=== PATIENT | female | born 1975 | race African-American/Black ===

== ENCOUNTER 2016-08-26 06:54 | Emergency (ER) | payer OTHER ==
[~2016-08-26] VITALS: Ht 165.1 cm; Wt 105.0 kg
[~2016-08-26 06:54] MED LIST: PERM5CRE TOP
[2016-08-26 06:58] VITALS: BP 123/76; PULSE 90; RESP 20; TEMP 98.9; O2SAT 98
[2016-08-26] MEDS ORDERED: SODIUM CHLOR 0.9% 1000 ML INJ 1,000 ML IV SCH (07:23)
[2016-08-26] MEDS ORDERED: SODIUM CHLOR 0.9% 1000 ML INJ 1,000 ML IV ONE (07:30)
[2016-08-26] MEDS ORDERED: SODIUM CHLORIDE 0.9% FLUSH 10 ML FLUSH IV FLUSH PRN (07:30)
[2016-08-26] MEDS ORDERED: ONDANSETRON HCL 4 MG/2 ML VIAL IVP ONE (07:30)
[2016-08-26] MEDS ORDERED: PANTOPRAZOLE SODIUM 40 MG VIAL IVP ONE (07:30)
--- NOTE | 2016-08-26 07:44 | PD ---
HPI Chief Complaint: GI Complaint Time Seen by Provider: 07:22 Travel History International Travel<30 days: No Contact w/Intl Traveler<30days: No Traveled to known affect area: No History of Present Illness HPI Patient is a 40 year old female with history of gastritis presents to ER with c/ o of not feeling well. Patient reports that she has been having increased nausea and vomiting and diarrhea for the past 10 hours. Reports that her partner was sick with food poisoning prior to the onset of her symptoms. Patient reports that they did eat similar foods. Patient denies any fever/ chills. Reports that she has vomited so much, she sees specks of blood in her mucous. Reports that she is now noticing some dark stools. Patient reports, "I keep vomiting and having diarrhea." Reports pains to her epigastrium. Denies any recent travels/trips. Denies any recent antibiotics. Reports that she has had bouts of gastritis in the past, she is supposed to follow with manager finance but has not made an appointment yet. Patient with no other complaints at this time. [facility] Past Medical History Medical History: Denies Significant Hx Tetanus Vaccination: > 5 Years Influenza Vaccination: No ?: Not LMP: 08/13/16 Past Surgical History Surgical History: No Previous Surgery Social History Alcohol Use: Yes (OCCASIONAL) Tobacco Use: No Substance Use: No Allergies-Medications (Allergen,Severity, Reaction): Coded Allergies: Lortab (Verified Allergy, Severe, VOMITING, 08/26/16) Tramadol (Verified Allergy, Severe, 08/26/16) Reported Meds & Prescriptions Reported Meds & Active Scripts Active Omeprazole 40 Mg Cap 40 Mg PO DAILY Review of Systems General / Constitutional: No: Fever Eyes: No: Visual changes HENT: No: Headaches Cardiovascular: No: Chest Pain or Discomfort Respiratory: No: Shortness of Breath Gastrointestinal: Positive: Nausea, Vomiting, Diarrhea, Abdominal Pain, Hematemesis Genitourinary: No: Dysuria Musculoskeletal: No: Pain Skin: No Rash Neurologic: No: Weakness Psychiatric: No: Depression Endocrine: No: Polydipsia Hematologic/Lymphatic: No: Easy Bruising Physical Exam Narrative GENERAL: Moderate distress SKIN: Focused skin assessment warm/dry. HEAD: Atraumatic. Normocephalic. EYES: Pupils equal and round. No scleral icterus. No injection or drainage. ENT: No nasal bleeding or discharge. Mucous membranes pink and moist. NECK: Trachea midline. No JVD. CARDIOVASCULAR: Regular rate and rhythm. No murmur appreciated. RESPIRATORY: No accessory muscle use. Clear to auscultation. Breath sounds equal bilaterally. GASTROINTESTINAL: Abdomen soft, tenderness to the epigastrium, nondistended. Patient with slightly heme positive stool, stool is light brown in color, no rebound or guarding on exam MUSCULOSKELETAL: No obvious deformities. No clubbing. No cyanosis. No edema. NEUROLOGICAL: Awake and alert. No obvious cranial nerve deficits. Motor grossly within normal limits. Normal speech. PSYCHIATRIC: Appropriate mood and affect; insight and judgment normal. Data Data Last Documented VS Vital Signs Date Time Temp Pulse Resp B/P Pulse Ox O2 Delivery O2 Flow Rate FiO2 08/26/16 10:40 82 18 126/75 100 Room Air 08/26/16 06:58 98.9 Orders Complete Blood Count With Diff (08/26/16 07:23) Comprehensive Metabolic Panel (08/26/16 07:23) Prothrombin Time / Inr (Pt) (08/26/16 07:23) Act Partial Throm Time (Ptt) (08/26/16 07:23) Urinalysis - C+S If Indicated (08/26/16 07:23) Ct Abd/Pel W/O Iv Contrast (08/26/16 07:23) Iv Access Insert/Monitor (08/26/16 07:23) Ecg Monitoring (08/26/16 07:23) Ondansetron Inj (Zofran Inj) (08/26/16 07:30) Pantoprazole Inj (Protonix Inj) (08/26/16 07:30) Sodium Chlor 0.9% 1000 Ml Inj (Ns 1000 M (08/26/16 07:23) Sodium Chloride 0.9% Flush (Ns Flush) (08/26/16 07:30) Chest, Single Ap (08/26/16 07:23) Ed Urine Pregnancytest Poc (08/26/16 07:23) Sodium Chlor 0.9% 1000 Ml Inj (Ns 1000 M (08/26/16 07:30) Labs Laboratory Tests Test 08/26/16 08/26/16 07:30 09:15 White Blood Count 5.7 TH/MM3 Red Blood Count 4.47 MIL/MM3 Hemoglobin 12.6 GM/DL Hematocrit 36.9 % Mean Corpuscular Volume 82.5 FL Mean Corpuscular Hemoglobin 28.1 PG Mean Corpuscular Hemoglobin 34.1 % Concent Red Cell Distribution Width 14.0 % Platelet Count 307 TH/MM3 Mean Platelet Volume 8.3 FL Neutrophils (%) (Auto) 87.1 % Lymphocytes (%) (Auto) 6.3 % Monocytes (%) (Auto) 5.8 % Eosinophils (%) (Auto) 0.7 % Basophils (%) (Auto) 0.1 % Neutrophils # (Auto) 5.0 TH/MM3 Lymphocytes # (Auto) 0.4 TH/MM3 Monocytes # (Auto) 0.3 TH/MM3 Eosinophils # (Auto) 0.0 TH/MM3 Basophils # (Auto) 0.0 TH/MM3 CBC Comment DIFF FINAL Differential Comment Prothrombin Time 10.7 SEC Prothromb Time International 1.0 RATIO Ratio Activated Partial 26.7 SEC Thromboplast Time Sodium Level 139 MEQ/L Potassium Level 4.1 MEQ/L Chloride Level 105 MEQ/L Carbon Dioxide Level 26.6 MEQ/L Anion Gap 7 MEQ/L Blood Urea Nitrogen 11 MG/DL Creatinine 0.91 MG/DL Estimat Glomerular Filtration 83 ML/MIN Rate Random Glucose 133 MG/DL Calcium Level 8.7 MG/DL Total Bilirubin 0.6 MG/DL Aspartate Amino Transf 15 U/L (AST/SGOT) Alanine Aminotransferase 21 U/L (ALT/SGPT) Alkaline Phosphatase 77 U/L Total Protein 8.0 GM/DL Albumin 3.6 GM/DL Urine Color YELLOW Urine Turbidity CLEAR Urine pH 6.0 Urine Specific [place] 1.016 Urine Protein NEG mg/dL Urine Glucose (UA) NEG mg/dL Urine Ketones NEG mg/dL Urine Occult Blood NEG Urine Nitrite NEG Urine Bilirubin NEG Urine Urobilinogen LESS THAN 2.0 MG/DL Urine Leukocyte Esterase NEG Urine RBC 1 /hpf Urine WBC LESS THAN 1 /hpf Urine Squamous Epithelial <1 /hpf Cells Microscopic Urinalysis Comment CULT NOT INDICATED MDM Medical Decision Making Medical Screen Exam Complete: Yes Emergency Medical Condition: Yes Interpretation(s) Vital Signs Date Time Temp Pulse Resp B/P Pulse Ox O2 Delivery O2 Flow Rate FiO2 08/26/16 07:12 18 08/26/16 06:58 98.9 90 20 123/76 98 Room Air Differential Diagnosis Gastritis, gastroenteritis, gastric ulcer, cholecystitis, electrolyte abnormality Narrative Course Patient is a 40-year-old female who presents to emergency room with complaints of abdominal pain with nausea, vomiting and diarrhea for the past 10 hours. She has been noticing specks of bright red blood in her sputum as well as dark stools. On evaluation, patient is likely heme positive from her rectum with light brown stool. Patient does have history of gastritis, plan to give IV Protonix. Patient was placed on a cardiac tech, labs including liver function tests ordered. CT of the abdomen and pelvis ordered. We'll hydrate with IV fluids and give antiemetics and monitor patient. CBC & BMP Diagram 08/26/16 07:30 Last Impressions Chest X-Ray 08/26/16722 Signed Impressions: Service Date/Time: Friday, August 26, 2016 07:33 - CONCLUSION: No acute disease. Jonathan Schreiber MD FACR Abdomen/Pelvis CT 08/26/16722 Signed Impressions: Service Date/Time: Wednesday, August 26, 2016 09:57 - CONCLUSION: No acute findings in the abdomen and pelvis. Jose Orellana MD Patient reevaluated, patient feeling much better at this time. Abdomen is soft , nontender, nondistended, no peritoneal signs. patient with most likely gastritis. Labs reviewed - wnl Discussed need for her to follow up with manager finance as outpatient. Patient was given the option of observation vs outpt trial, patient would like to be discharged to home and follow up with specialist. She will return to the emergency room should she develop progressing or worsening symptoms.signs of acute abdomen was reviewed with patient. Understands when to return to the emergency room. Diagnosis Primary Impression: Gastritis Qualified Code: K29.01 - Acute gastritis with hemorrhage, unspecified gastritis type Additional Impression: Liver cyst Referrals: Douglas Arellano MD Patient Instructions: General Instructions Additional Instructions: Please follow-up with your manager finance as soon as possible Return to emergency room if symptoms worsen or progress Return to the emergency room as needed Please bring your radiology report to doctor's office for follow-up and all findings and today Med/Other Pt SpecificInfo: Prescription(s) given Scripts Omeprazole 40 Mg Cap40 Mg PO DAILY #30 CAP Ref 0 Prov:Lupis Hoffman DO 08/26/16 Disposition: 01 DISCHARGE HOME Condition: Stable Lupis Hoffman DO August 26, 2016 07:44
[2016-08-26 07:48] VITALS: BP 136/72; PULSE 81; RESP 20; O2SAT 97
[2016-08-26 08:15] LABS: BASOPHIL % 0.1 % (0.0-2.0); EOSINOPHIL % 0.7 % (0.0-4.0); HEMATOCRIT 36.9 % (35.0-46.0); HEMO FLAGS DIFF FINAL; LYMPH % 6.3 % (9.0-44.0); LYMPHOCYTE # 0.4 TH/MM3 (1.0-4.8); MEAN CELL VOLUME 82.5 FL (80.0-100.0); MEAN CORPUSCULAR HEMOGLOBIN 28.1 PG (27.0-34.0); MEAN CORPUSCULAR HGB CONC 34.1 % (32.0-36.0); MONO % 5.8 % (0.0-8.0); NEUT % 87.1 % (16.0-70.0); PLATELET COUNT 307 TH/MM3 (150-450); RED BLOOD COUNT 4.47 MIL/MM3 (4.00-5.30); WHITE BLOOD COUNT 5.7 TH/MM3 (4.0-11.0)
[2016-08-26 08:25] LABS: APTT (PATIENT) 26.7 SEC (24.3-30.1); PROTHROMBIN TIME - PATIENT 10.7 SEC (9.8-11.6)
--- NOTE | 2016-08-26 08:29 | RADRPT ---
EXAM DATE/TIME: 08/26/2016 07:33 [facility] COMPARISON: No previous studies available for comparison. INDICATIONS : Free air. Patients complains of nausea, vomiting, abdomen pain, and diarrhea. MEDICAL HISTORY : None. SURGICAL HISTORY : None. ENCOUNTER: Initial ACUITY: 2 days PAIN SCORE: 8/10 LOCATION: Bilateral Chest/abdomen. FINDINGS: A single view of the chest demonstrates the lungs to be symmetrically aerated without evidence of mas s, infiltrate or effusion. The cardiomediastinal contours are unremarkable. Osseous structures are intact. CONCLUSION: No acute disease. Jonathan Schreiber MD FACR on August 26, 2016 at 7:48 Board Certified Radiologist. This report was verified electronically.
[2016-08-26 08:41] LABS: ALKALINE PHOSPHATASE 77 U/L (45-117); ALT (GPT) 21 U/L (10-53); ANION GAP 7 MEQ/L (5-15); AST (GOT) 15 U/L (15-37); BICARBONATE 26.6 MEQ/L (21.0-32.0); BLOOD UREA NITROGEN 11 MG/DL (7-18); CHLORIDE 105 MEQ/L (98-107); GLOMERULAR FILTRATION RATE 83 ML/MIN (>89); POTASSIUM 4.1 MEQ/L (3.5-5.1); SODIUM (NA) 139 MEQ/L (136-145); TOTAL BILIRUBIN ADULT 0.6 MG/DL (0.2-1.0)
[2016-08-26 09:00] VITALS: BP 121/93; PULSE 75; RESP 18; O2SAT 100
[2016-08-26 09:51] LABS: BLOOD, URINE NEG (NEG); COMMENT (UR) CULT NOT INDICATED; CULTURE IF INDICATED CULT NOT INDICATED; GLUCOSE,URINE NEG (NEG); KETONE, URINE NEG (NEG); NITRITE,URINE NEG (NEG); SQUAMOUS EPITHELIAL CELL URINE <1 /hpf (0-5); URINE COLOR YELLOW (YELLW/STRAW)
[2016-08-26 10:40] VITALS: BP 126/75; PULSE 82; RESP 18; O2SAT 100
--- NOTE | 2016-08-26 10:42 | RADRPT ---
EXAM DATE/TIME: 08/26/2016 09:57 [facility] COMPARISON: No previous studies available for comparison. INDICATIONS : Nausea, vomiting, diarrhea this morning. ORAL CONTRAST: No oral contrast ingested. RADIATION DOSE: 11.33 CTDIvol (mGy) MEDICAL HISTORY : None SURGICAL HISTORY : None. ENCOUNTER: Initial ACUITY: 1 day PAIN SCALE: 4/10 LOCATION: abdomen TECHNIQUE: Volumetric scanning of the abdomen and pelvis was performed. Using automated exposure control and ad justment of the mA and/or kV according to patient size, radiation dose was kept as low as reasonably achievable to obtain optimal diagnostic quality images. FINDINGS: LOWER LUNGS: The visualized lower lungs are clear. LIVER: 1.2 cm rounded hypodensity in the anterior left lobe of the liver statistically most likely to repres ent a cyst or hemangioma. Liver otherwise within normal limits. No pericholecystic inflammatory andrea es. SPLEEN: Normal size without lesion. PANCREAS: Within normal limits. KIDNEYS: Normal in size and shape. There is no mass, stone, or hydronephrosis. ADRENAL GLANDS: Within normal limits. VASCULAR: There is no aortic aneurysm. BOWEL/MESENTERY: No evidence of bowel dilatation. No free air. Trace free fluid. Appendix within normal limits. ABDOMINAL WALL: Within normal limits. RETROPERITONEUM: There is no lymphadenopathy. BLADDER: No wall thickening or mass. REPRODUCTIVE: Within normal limits. INGUINAL: There is no lymphadenopathy or hernia. MUSCULOSKELETAL: Within normal limits for patient age. CONCLUSION: No acute findings in the abdomen and pelvis. Jose Orellana MD on August 26, 2016 at 10:34 Board Certified Radiologist. This report was verified electronically.
[2016-08-26] MEDS ORDERED: OMEP40CA2 PO (11:41)
[2016-08-26 11:56] VITALS: BP 115/72
== END 2016-08-26 12:23 | disposition home or self-care (01) ==
LOC: NEPE 06:54
DX: K29.01 Acute gastritis with bleeding (principal); K76.89 Other specified diseases of liver
CPT/HCPCS: 71010; 74176; 80053; 81001; 84703; 85025; 85610; 85730; 96361; 96374; 96375; 99285; C9113; J2405; J7030

== ENCOUNTER 2017-05-27 13:08 | Emergency (ER) | payer OTHER ==
[~2017-05-27 13:08] MED LIST changes: +OMEP40CA2 PO; -PERM5CRE TOP
[2017-05-27 13:11] VITALS: BP 123/75; PULSE 69; RESP 20; TEMP 98.5; O2SAT 99
[2017-05-27] MEDS ORDERED: ROBA750T PO (14:19)
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
== END 2017-05-27 14:42 | disposition home or self-care (01) ==
LOC: PHEFT 13:08
DX: S29.012A Strain of muscle and tendon of back wall of thorax, initial encounter (principal); V89.2XXA Person injured in unspecified motor-vehicle accident, traffic, initial encounter; Y92.410 Unspecified street and highway as the place of occurrence of the external cause; Z88.6 Allergy status to analgesic agent; Z88.5 Allergy status to narcotic agent
CPT/HCPCS: 99283